=== PATIENT | female | born 1985 | race Caucasian/White ===

== ENCOUNTER 2017-04-22 10:11 | Emergency (ER) | payer BC, OTHER ==
[2017-04-22] MEDS ORDERED: Dicyclomine 20 MG TAB ONE (10:46)
--- NOTE | 2017-04-22 11:04 | RAD ---
AP VIEW OF THE CHEST: INDICATION: Chest pain. COMPARISON: None. FINDINGS: Lungs are clear. Cardiomediastinal silhouette is normal. No acute osseous abnormality is evident. IMPRESSION: No acute cardiopulmonary abnormality. POS: [facility]
[2017-04-22 11:48] LABS: #Eosinphils 0.1 thou/uL (0.0-0.7); #Lymphocytes 1.6 thou/uL (1.20-3.40); #Monocytes 1.3 thou/uL (0.11-0.59); #Neutrophils 11.6 thou/uL (1.40-6.50); %Basophils 0.1 % (0.0-1.0); %Eosinophils 0.5 % (0.0-10.0); %Lymphocytes 10.9 % (21.0-51.0); %Monocytes 8.7 % (0.0-10.0); Hematocrit 39.7 % (36.0-47.0); Red Blood Cell (RBC) Count 4.27 mill/uL (4.20-5.40); White Blood Cell (WBC) Count 14.5 thou/uL (4.8-10.8)
--- NOTE | 2017-04-22 11:58 | RAD ---
TWO VIEWS OF THE ABDOMEN: INDICATION: Abdominal pain with decreased stooling. COMPARISON: None. FINDINGS: Lung bases are clear. The bowel gas pattern is unobstructed. There is a mild amount of retained sto ol within the colon. There are small phleboliths within the lower pelvis. There is slight levoscoli osis of the lumbar spine which may be related to positioning. No acute osseous abnormality is eviden t. IMPRESSION: No acute abnormality. POS: [facility]
[2017-04-22 12:11] LABS: ALT (SGPT) 15 U/L (8-55); AST (SGOT) 14 U/L (5-34); Alkaline Phosphatase 56 U/L (40-150); Anion Gap 13 mmol/L (10-20); BUN (Urea Nitrogen) 14 mg/dL (7.0-18.7); Bilirubin, Total 0.7 mg/dL (0.2-1.2); CK (CPK) 27 U/L (29-168); Calc. Creatinine Clearance 0 mL/min (70-130); Calcium 9.3 mg/dL (7.8-10.44); Carbon Dioxide 25 mmol/L (22-29); Chloride 104 mmol/L (98-107); Estimated GFR-MDRD Greater than 90; Globulin 3.1 g/dL (2.4-3.5); Lipase 4 U/L (8-78); Protein, Total 7.5 g/dL (6.0-8.3)
[2017-04-22 12:14] LABS: Troponin I Less than 0.010 ng/mL (< 0.028)
== END 2017-04-22 12:44 | disposition home or self-care (01) ==
LOC: ERS 10:11
DX: R07.9 Chest pain, unspecified (principal); R06.02 Shortness of breath; R42 Dizziness and giddiness; R53.1 Weakness; T40.2X5A Adverse effect of other opioids, initial encounter
CPT/HCPCS: 36415; 71010; 74020; 80053; 82550; 82553; 83690; 84484; 84703; 85025; 93005; 96360

== ENCOUNTER 2018-03-14 06:31 | Outpatient (CLI) | payer BC ==
--- NOTE | 2018-03-14 08:59 | ULT ---
PELVIC SONOGRAM TRANSABDOMINAL AND TRANSVAGINAL IMAGING WITH DUPLEX EVALUATION: Date: 03/14/18 HISTORY: Pelvic pain. FINDINGS: Urinary bladder is unremarkable. Uterus has a heterogeneous echotexture and measures up to 6.3 cm. It is retroverted. Endometrium is 0.7 cm. There is a physiologic amount of free fluid within the pelvis . Right ovary is 2.5 cm and left ovary is 3.7 cm. Each contains follicles and demonstrates good color a nd spectral Doppler flow. Additional prominent vessels are apparent within each side of the pelvis. IMPRESSION: 1. Retroverted uterus without focal abnormality. 2. Venous congestion of the pelvis is apparent. POS: [facility]
== END 2018-03-14 06:32 | disposition home or self-care (01) ==
LOC: BICULT 06:31
PROVIDERS: ATTEND Nurse Practitioner Women's Health
DX: R10.2 Pelvic and perineal pain (principal); N85.4 Malposition of uterus
CPT/HCPCS: 76856

== ENCOUNTER 2018-12-24 12:05 | Outpatient (CLI) | payer BC ==
--- NOTE | 2018-12-24 12:42 | RAD ---
3 views of the right index finger: 12/24/2018 COMPARISON: None HISTORY: Pain FINDINGS: No fracture or dislocation. No radiopaque foreign body or subcutaneous gas. IMPRESSION: No acute findings.
== END 2018-12-24 12:06 | disposition home or self-care (01) ==
LOC: BICRAD 12:05
PROVIDERS: ATTEND Family Medicine
DX: M79.644 Pain in right finger(s) (principal)
CPT/HCPCS: 36415; 80053; 80061; 83036; 84439; 84443; 85025